=== PATIENT | male | born 1965 | race Caucasian/White ===

== ENCOUNTER 2016-11-02 11:48 | Outpatient (CLI) | payer BC ==
[2016-11-02 15:03] VITALS: BP 154/96
--- NOTE | 2016-11-03 16:30 | RAD ---
Lumbar spine-five views with flexion and extension. Indication: Lower back pain. Findings: Spine stimulator leads project over the lumbar spine, with the device over the right pelvi s. There is curve of the spine to the right, probably on a degenerative basis measuring about 19 dec rease the pedicle level of L5 and L2 multilevel disk degenerative change and facet arthropathy is se en without gross malalignment. No marked abnormal motion seen on flexion-extension views. Impression: Degenerative changes as above. Reported By:
--- NOTE | 2016-11-04 08:23 | CT ---
CT lumbar spine myelogram Indication: Back pain. History of spine stimulator. Comparison: Radiograph from the same day reviewed. Technique: After discussion of the risks and benefits, time-out was performed. A grid was placed. A powder mixer CT scan was obtained. This a jessica was placed on the skin. Patient is prepped and draped in the usual sterile fashion. Local anesthetic was applied. A 22 gauge spinal needle was advanced to the t hecal sac at the L5-S1 level. 10 cc of low osmolar iodinated contrast were placed per protocol. Then, the patient was placed and supine position helical images through the lumbar spine were obtain ed. Coronal and sagittal reformats provided. Post procedural instructions were given. The patient was observed. Findings: Noncontrast localizing imaging demonstrates vascular plaque. This is minimal. Myelogram: The conus medullaris terminates around the pedicle level of L1. Nerve roots layer normall y in the thecal sac. No severe spinal canal stenosis seen. Spine stimulator leads enter the spinal c anal at the T12-L1 level and the tensor directed cranially. There are Schmorl's nodes and degenerative changes without acute fracture. Disc space narrowing is n oted at multiple levels. T10 through L1 show minimal facet degenerative change without high-grade stenosis. No severe spinal canal stenosis seen. Schmorl's nodes noted. L1-L2: Circumferential disc bulge causes mild spinal canal narrowing best seen on sagittal image 47 of series 30. There is mild bilateral neural foramen narrowing. L2-L3: Circumferential disk bulge/disc osteophytes with facet arthropathy causes mild spinal canal n arrowing. 's mild bilateral neural foraminal narrowing noted, slightly worse on the left. L3-L4: Disc bulge and disc osteophytes with facet arthropathy causes mild spinal canal narrowing. Mi ld left neural foramen narrowing present. L4-L5: Circumferential disk bulge and facet arthropathy causes mild spinal canal narrowing. Moderate left neural foraminal narrowing noted. L5-S1: Circumferential disk bulge and facet arthropathy causes mild spinal canal narrowing. Mild lef t neural foramen narrowing noted. The spine curves to the right about 20.5 at the inferior endplate of L1 and L5. Impression: 1. No high-grade spinal canal stenosis or neural foraminal stenosis. Multilevel disk degenerative ch shellie, disc bulges and facet arthropathy as above. 2. Multilevel spinal canal narrowing is present, generally mild in degree, and probably most pronoun shraddha at L1-L2 and L4-L5. 3. Neural foraminal narrowing generally worse on the left due to the degenerative curvature to the r ight. This results in neural foraminal narrowing at L1 through S1 on the left, generally mild. This is most pronounced at L4-L5 where there is moderate stenosis. 4. Successful myelogram without acute complication. Reported By:
== END 2016-11-02 15:15 | disposition home or self-care (01) | DRG 552 ==
LOC: RAD 11:48
PROVIDERS: ATTEND Neurological Surgery
DX: M54.16 Radiculopathy, lumbar region (principal); M54.5 Low back pain; N28.89 Other specified disorders of kidney and ureter
CPT/HCPCS: 36415; 62304; 72100; 72120; 72132; 77003; 85610